=== PATIENT | male | born 1980 | race Caucasian/White ===

== ENCOUNTER 2021-05-20 13:32 | Emergency (ER) | payer OTHER ==
[~2021-05-20] VITALS: Ht 182.9 cm; Wt 83.9 kg
--- NOTE | 2021-05-20 13:38 | NUR ---
TO ER BED 13, [id number] FRM [employer] P[employer]. SI WANTS TO OVERDOSE ON FENTANYL. PATIENT IS UNKEMPT, AAOX3, BREATHING EVEN AND NON LABORED, DENIES ANY PAIN, AWAITING MD DINH
[2021-05-20 14:04] LABS: BASOPHILS # (AUTO) 0.1 K/uL (0.0-0.2); BASOPHILS % (AUTO) 0.5 % (0.0-2.0); EOSINOPHILS % (AUTO) 0.2 % (0.0-6.0); HEMATOCRIT 41 % (39-51); HEMOGLOBIN 14.1 g/dL (13.5-17.5); LYMPHOCYTES # (AUTO) 1.6 K/uL (0.8-4.8); LYMPHOCYTES % (AUTO) 13.2 % (20.0-44.0); MEAN CORPUSCULAR HGB CONC 34 g/dl (31.0-36.0); MEAN CORPUSCULAR VOLUME 87 fL (80-96); MONOCYTES # (AUTO) 0.5 K/uL (0.1-1.30); MONOCYTES % (AUTO) 4.2 % (2.0-12.0); NEUTROPHILS % (AUTO) 81.9 % (43.0-81.0); PLATELET COUNT (AUTO) 394 K/uL (150-450); RED BLOOD CELL COUNT(AUTO) 4.77 MIL/uL (4.5-6.0); WHITE BLOOD COUNT (AUTO) 12.3 K/uL (4.3-11.0)
--- NOTE | 2021-05-20 14:10 | NUR ---
URINE COLLECTED AND SENT TO LAB
--- NOTE | 2021-05-20 14:12 | NUR ---
COVID SWAB DONE AND SENT TO LAB
--- NOTE | 2021-05-20 14:17 | NUR ---
LUNCH PROVIDED, TOLERATED WELL
[2021-05-20 14:19] LABS: CALCIUM, SERUM 9.6 mg/dL (8.5-10.1); CARBON DIOXIDE 25 mmol/L (21-32); CHLORIDE 101 mmol/L (98-107); CREATININE 0.8 mg/dL (0.6-1.3); GLUCOSE 110 mg/dL (74-106); POTASSIUM 3.5 mmol/L (3.5-5.1); SODIUM SERUM 136 mmol/L (136-145); UREA NITROGEN, BLOOD 23 mg/dL (7-18)
[2021-05-20 14:25] LABS: ALANINE AMINOTRANSFERASE 17 U/L (12-78); ALBUMIN 3.4 g/dL (3.4-5.0); ALCOHOL, BLOOD < 3 mg/dL (0-0); ALKALINE PHOSPHATASE 112 U/L (46-116); ASPARTATE AMINOTRANSFERASE 18 U/L (15-37); BILIRUBIN,DIRECT 0.2 mg/dL (0.0-0.2); BILIRUBIN,TOTAL 0.5 mg/dL (0.2-1.0); TOTAL PROTEIN, SERUM 9.1 g/dL (6.4-8.2)
[2021-05-20 14:30] LABS: ACETAMINOPHEN 0 ug/ml (10-30)
[2021-05-20 15:00] LABS: BILIRUBIN,URINE SMALL (NEGATIVE); COLOR,URINE YELLOW (YELLOW); LEUKOCYTE ESTERASE ,URINE NEGATIVE (NEGATIVE); NITRITE, URINE NEGATIVE (NEGATIVE); PH,URINE 6.5 (5.0-8.0); PROTEIN,URINE TRACE mg/dl (NEGATIVE); UGLUCOSE NEGATIVE (NEGATIVE)
[2021-05-20 15:13] LABS: BACTERIA,URINE None seen /HPF (None Seen); MUCUS,URINE Few /LPF (None Seen); RBC,URINE 0-3 /HPF (0-2); SPERM,URINE Present /HPF (None Seen); SQUAMOUS EPITHELIAL CELL,UR None Seen /HPF (None Seen); WBC,URINE 0-2 /HPF (0-3)
--- NOTE | 2021-05-20 17:05 | NUR ---
FAXED CLINICALS TO [facility]
--- NOTE | 2021-05-20 17:57 | NUR ---
[facility] CALLED AND WAS NOTIFIED OF PT ACCEPTANCE UNDER THE CARE OF DR. DYE NUMBER FOR REPORT [phone] WILL RECIEVE A CALL BACK [facility] ETA OF TRANSPORT
--- NOTE | 2021-05-20 18:08 | NUR ---
INGRIS [facility] WILL LET ER KNOW IF SHE CAN SET UP TRANSPORT
--- NOTE | 2021-05-20 18:09 | NUR ---
PATIENT WILL BE PICKED UP BY [facility] IN 30MINS PER INGRIS [facility]
[2021-05-20 19:07] VITALS: BP 141/86
--- NOTE | 2021-05-20 19:07 | NUR ---
TANSPORTATION ARRIVED TO TAKE PT TO [facility]. PT LEFT IN STABLE CONDITION.
== END 2021-05-20 19:09 ==
LOC: ER 13:36
DX: R45.851 Suicidal ideations (principal); Z20.822 Contact with and (suspected) exposure to COVID-19; F19.10 Other psychoactive substance abuse, uncomplicated; Z59.00 Homelessness unspecified
CPT/HCPCS: 36415; 80048; 80076; 80143; 80307; 80320; 81001; 85025; 87426; 99285; C9803; G0480